=== PATIENT | male | born 1995 | race Two or more races ===

== ENCOUNTER 2016-08-29 20:30 | Emergency (ER) | payer SELFPAY ==
[~2016-08-29] VITALS: Ht 182.9 cm; Wt 72.6 kg
--- NOTE | 2016-08-29 20:40 | NUR ---
To bed 6 a 21 yo male bibself with c/o rectal bleeding with bowel movement today at 1300. Per patient he had a hemmoroidal banding 5 weeks ago and was advised by his doctor to come to er for bleeding. no bleeding noted at this time. vss. gowned. initiated comfort measures. awaiting for er md wise.
--- NOTE | 2016-08-29 20:49 | NUR ---
NAHED Sanchez at bedside.
[2016-08-29 21:22] LABS: BASOPHILS # (AUTO) 0.3 /CMM (0.0-0.2); BASOPHILS % (AUTO) 3.3 % (0.0-2.0); EOSINOPHILS # (AUTO) 0.1 /CMM (0.0-0.7); EOSINOPHILS % (AUTO) 1.8 % (0.0-6.0); HEMATOCRIT 45 % (39-51); HEMOGLOBIN 14.7 g/dL (13.5-17.5); LYMPHOCYTES # (AUTO) 2.8 /CMM (0.8-4.8); LYMPHOCYTES % (AUTO) 36.6 % (20.0-44.0); MEAN CORPUSCULAR HEMOGLOBIN 27 PG (26.0-33.0); MEAN CORPUSCULAR HGB CONC 33 g/dl (31.0-36.0); MEAN CORPUSCULAR VOLUME 81 fL (80-96); MONOCYTES # (AUTO) 0.5 /CMM (0.1-1.30); MONOCYTES % (AUTO) 6.8 % (2.0-12.0); NEUTROPHILS # (AUTO) 4.1 /CMM (1.8-8.9); NEUTROPHILS % (AUTO) 51.5 % (43.0-81.0); PLATELET COUNT (AUTO) 256 /CMM (150-450); RDW COEFFICIENT OF VARIATION 12.5 (11.5-15.0); RED BLOOD CELL COUNT(AUTO) 5.51 MIL/uL (4.5-6.0); WHITE BLOOD COUNT (AUTO) 7.8 K/uL (4.3-11.0)
--- NOTE | 2016-08-29 21:29 | NUR ---
Patient discharged to home in stable condition. Written and verbal after care instructions given. Patient verbalizes understanding of instruction. Patient is ambulatory with steady gait, no further complaints.
[2016-08-29 21:32] VITALS: BP 128/78
== END 2016-08-29 21:32 | disposition home or self-care (01) ==
LOC: ER 20:33
DX: K62.5 Hemorrhage of anus and rectum (principal)
CPT/HCPCS: 36415; 85025-TC; A4606; Z7610